=== PATIENT | male | born 1955 | race Asian ===

== ENCOUNTER → 2018-06-20 | Outpatient (CLI) | payer OTHER ==
[~2018-06-20] MED LIST: AMLO10TA6 PO; ASPI-555 PO; CARV12.511 PO; LOSA50TA25 PO
[2018-06-20 08:36] LABS: BASOPHILS % (AUTO) 0.6 % (0.0-5.0); EOSINOPHILS % (AUTO) 5.2 % (0.0-8.0); HEMATOCRIT 40.8 % (42-54); LYMPHOCYTES % (AUTO) 18.3 % (21.0-51.0); MEAN CORPUSCULAR HEMOGLOBIN 30.1 pg (27.0-33.0); MEAN CORPUSCULAR HGB CONC 34.3 g/dL (32.0-36.0); MEAN CORPUSCULAR VOLUME 87.9 fL (79-99); MONOCYTES % (AUTO) 5.7 % (3.0-13.0); NEUTROPHILS % (AUTO) 70.2 % (40.0-77.0); NUCLEATED RED BLOOD CELLS 0.1 % (0.0-0.19); PLATELET COUNT (AUTO) 224 K/uL (130-400); RED BLOOD CELL COUNT(AUTO) 4.63 MIL/uL (4.50-6.20); RED CELL DISTRIBUTION WIDTH 13.8 % (11.0-15.5); WHITE BLOOD COUNT (AUTO) 7.3 K/uL (4.8-10.8)
[2018-06-20 09:02] LABS: ALBUMIN 3.8 g/dL (3.5-5.0); BILIRUBIN,TOTAL 0.4 mg/dL (0.2-1.0); CREATININE 1.4 mg/dL (0.5-1.5); THYROID STIMULATING HORMONE 1.78 uIU/mL (0.36-3.74); TOTAL PROTEIN, SERUM 8.3 g/dL (6.0-8.3)
[2018-06-20 09:08] LABS: POTASSIUM 4.5 mmol/L (3.5-5.1)
== END | disposition home or self-care (01) ==
LOC: LAB 07:29
PROVIDERS: ATTEND Internal Medicine
DX: Z12.11 Encounter for screening for malignant neoplasm of colon (principal); Z12.5 Encounter for screening for malignant neoplasm of prostate; I10 Essential (primary) hypertension; E78.5 Hyperlipidemia, unspecified; K21.9 Gastro-esophageal reflux disease without esophagitis
CPT/HCPCS: 36415; 80053; 80061; 82270; 84153; 84443; 85025

== ENCOUNTER → 2018-07-21 | Outpatient (CLI) | payer OTHER ==
[~2018-07-21] MED LIST changes: +IOHEXOL 350 MG/ML 100ML INFUS..BTL IV ONE
== END | disposition home or self-care (01) ==
LOC: OIH 09:39
PROVIDERS: ATTEND Internal Medicine Cardiovascular Disease
DX: I71.2 Thoracic aortic aneurysm, without rupture (principal); I71.4 Abdominal aortic aneurysm, without rupture; N28.1 Cyst of kidney, acquired; N32.89 Other specified disorders of bladder; I70.0 Atherosclerosis of aorta; J44.9 Chronic obstructive pulmonary disease, unspecified
CPT/HCPCS: 71275; 75635; Q9967

== ENCOUNTER → 2018-08-24 | Outpatient (CLI) | payer OTHER ==
[~2018-08-24] MED LIST changes: -IOHEXOL 350 MG/ML 100ML INFUS..BTL IV ONE
== END | disposition home or self-care (01) ==
LOC: LAB 15:41
PROVIDERS: ATTEND Internal Medicine
DX: R97.20 Elevated prostate specific antigen [PSA] (principal)
CPT/HCPCS: 36415; 84153; 84154

== ENCOUNTER 2021-10-05 06:50 | Day surgery (SDC) | payer OTHER ==
[2021-10-02 10:10] LABS: BASOPHILS % (AUTO) 0.6 % (0.0-5.0); EOSINOPHILS % (AUTO) 5.2 % (0.0-8.0); HEMATOCRIT 41.7 % (42-54); LYMPHOCYTES % (AUTO) 23.3 % (21.0-51.0); MEAN CORPUSCULAR HEMOGLOBIN 28.8 pg (27.0-33.0); MEAN CORPUSCULAR HGB CONC 32.9 g/dL (32.0-36.0); MEAN CORPUSCULAR VOLUME 87.6 fL (79-99); MONOCYTES % (AUTO) 6.5 % (3.0-13.0); NEUTROPHILS % (AUTO) 64.3 % (40.0-77.0); PLATELET COUNT (AUTO) 204 K/uL (130-400); RED BLOOD CELL COUNT(AUTO) 4.76 MIL/uL (4.50-6.20); WHITE BLOOD COUNT (AUTO) 7.1 K/uL (4.8-10.8)
[2021-10-02 10:21] LABS: CREATININE 1.4 mg/dL (0.5-1.5); POTASSIUM 4.5 mmol/L (3.5-5.1)
[2021-10-02 16:11] VITALS: BP 151/82
[2021-10-05] VITALS (18 sets, daily range): BP systolic 94–176; BP diastolic 45–94
[~2021-10-05] VITALS: Ht 165.1 cm; Wt 72.1 kg
[~2021-10-05 06:50] MED LIST changes: +AMLO-257 PO; -AMLO10TA6 PO; -ASPI-555 PO; +ATOR40TA71 PO; -CARV12.511 PO; +LOSA100T58 PO; -LOSA50TA25 PO; +TAMS-1 PO
[2021-10-05] MEDS ORDERED: DEXAMETHASONE SOD PHOSPHATE 10MG/ML 1ML VIAL ONE (06:51)
[2021-10-05] MEDS ORDERED: SUCCINYLCHOLINE CHLORIDE 20 MG/ML 10 ML VIAL ONE (06:51)
[2021-10-05] MEDS ORDERED: ONDANSETRON 4MG INJ ONE (06:51)
[2021-10-05] MEDS ORDERED: LIDOCAINE PF 100MG/5ML (2%) SYRINGE 5ML ONE (06:51)
[2021-10-05] MEDS ORDERED: PROPOFOL 10 MG/ML 20ML VIAL IV ONE (06:51)
[2021-10-05] MEDS ORDERED: ROCURONIUM 10MG/1ML SYR 10 MG/ML ML ONE (06:52)
[2021-10-05] MEDS ORDERED: NEOSTIGMINE 5MG/5ML SYR IV ONE (06:52)
[2021-10-05] MEDS ORDERED: FENTANYL CITRATE PF 50 MCG/1 ML 2ML VIAL ONE (06:52)
[2021-10-05] MEDS ORDERED: MIDAZOLAM HCL 1 MG/ML 2ML VIAL ONE (06:52)
[2021-10-05] MEDS ORDERED: GLYCOPYRROLATE 1 MG/5 ML SYRINGE ONE (06:52)
[2021-10-05] MEDS ORDERED: CEFAZOLIN SODIUM 1 GM VIAL ONE (07:26)
[2021-10-05] MEDS ORDERED: LACTATED RINGERS 1000ML 1,000 ML IV ONE (07:27)
[2021-10-05] MEDS ORDERED: CEFAZOLIN SODIUM 2 GM VIAL IV ONE (08:25)
[2021-10-05] MEDS ORDERED: IBUP-2070 PO (09:36)
[2021-10-05] MEDS ORDERED: CEPH500B PO (09:36)
[2021-10-05] MEDS ORDERED: ACET1TAB25 PO (09:36)
== END 2021-10-05 11:30 | disposition home or self-care (01) ==
LOC: DAH 06:50 → EDSTATUS 12:00
PROVIDERS: ATTEND Orthopaedic Surgery
DX: M23.322 Other meniscus derangements, posterior horn of medial meniscus, left knee (principal); Z20.822 Contact with and (suspected) exposure to COVID-19; M17.12 Unilateral primary osteoarthritis, left knee; M25.762 Osteophyte, left knee; M94.262 Chondromalacia, left knee; I10 Essential (primary) hypertension; K21.9 Gastro-esophageal reflux disease without esophagitis; Z95.5 Presence of coronary angioplasty implant and graft; Z98.890 Other specified postprocedural states
CPT/HCPCS: 29881; 36415; 80048; 85025; 87635; 93005; A4215; A4221; A4222; A4223; A4649; A4663; A4930 ×2; A5120; A6223; J0330; J0690 ×2; J1100; J2001; J2250; J2405; J2704; J2710; J3010; J3490; J7120

== ENCOUNTER → 2023-12-29 | Outpatient (CLI) | payer OTHER ==
[~2023-12-29] MED LIST changes: +ACET-2079 PO; +CEPH500B PO; +IBUP-2070 PO; -LOSA100T58 PO; +LOSA100T59 PO
[2023-12-29 09:38] LABS: HEMATOCRIT 43.5 % (42-54); MEAN CORPUSCULAR HEMOGLOBIN 29.9 pg (27.0-33.0); MEAN CORPUSCULAR HGB CONC 33.8 g/dL (32.0-36.0); MEAN CORPUSCULAR VOLUME 88.6 fL (79-99); RED BLOOD CELL COUNT(AUTO) 4.91 MIL/uL (4.50-6.20); RED CELL DISTRIBUTION WIDTH 13.5 % (11.0-15.5); WHITE BLOOD COUNT (AUTO) 7.6 K/uL (4.8-10.8)
[2023-12-29 09:44] LABS: ALBUMIN 3.7 g/dL (3.5-5.0); BILIRUBIN,DIRECT 0.2 mg/dL (0.0-0.3); BILIRUBIN,TOTAL 0.6 mg/dL (0.2-1.0); CREATININE 1.6 mg/dL (0.5-1.3); HEMOGLOBIN A1C 6.2 % (4.0-6.0); THYROID STIMULATING HORMONE 2.33 uIU/mL (0.36-3.74); TOTAL PROTEIN, SERUM 8.4 g/dL (6.0-8.3)
== END | disposition home or self-care (01) ==
LOC: LAB 08:36
PROVIDERS: ATTEND Internal Medicine Cardiovascular Disease
DX: I10 Essential (primary) hypertension (principal); R73.03 Prediabetes; R06.02 Shortness of breath; E78.2 Mixed hyperlipidemia
CPT/HCPCS: 36415; 80048; 80061; 80076; 83036; 84443; 85027

== ENCOUNTER → 2024-01-24 | Outpatient (CLI) | payer OTHER ==
[2024-01-24 08:42] LABS: CREATININE 1.6 mg/dL (0.5-1.3); POTASSIUM 4.6 mmol/L (3.5-5.1)
== END | disposition home or self-care (01) ==
LOC: LAB 07:59
PROVIDERS: ATTEND Internal Medicine Cardiovascular Disease
DX: I10 Essential (primary) hypertension (principal); R06.02 Shortness of breath
CPT/HCPCS: 36415; 80048

== ENCOUNTER → 2024-02-23 | Outpatient (CLI) | payer OTHER ==
[~2024-02-23] MED LIST changes: +IOHEXOL 350 MG/ML 100ML INFUS..BTL IV ONE
== END | disposition home or self-care (01) ==
LOC: RAH 08:25
PROVIDERS: ATTEND Internal Medicine Cardiovascular Disease
DX: I71.21 Aneurysm of the ascending aorta, without rupture (principal); Z95.828 Presence of other vascular implants and grafts
CPT/HCPCS: 75574; Q9967

== ENCOUNTER → 2024-03-02 | Outpatient (CLI) | payer OTHER | END | disposition home or self-care (01) | LOC: RAH 11:19 | PROVIDERS: ATTEND Internal Medicine Cardiovascular Disease | DX: I71.23 Aneurysm of the descending thoracic aorta, without rupture (principal); I71.21 Aneurysm of the ascending aorta, without rupture; Z95.828 Presence of other vascular implants and grafts | CPT/HCPCS: 71275; Q9967 ==

== ENCOUNTER 2024-08-08 06:05 | Day surgery (SDC) | payer OTHER ==
[2024-08-06 10:12] VITALS: BP 145/65; PULSE 57; RESP 16; TEMP 98.3
[2024-08-06 10:14] LABS: BASOPHILS # (AUTO) 0.04 K/uL (0.00-0.20); BASOPHILS % (AUTO) 0.6 % (0.0-5.0); EOSINOPHILS % (AUTO) 3.2 % (0.0-8.0); HEMATOCRIT 38.3 % (42-54); IMMATURE GRANULOCYTE ABSOLUTE 0.02 K/uL (0-1); LYMPHOCYTES # (AUTO) 1.1 K/uL (1.0-4.8); MEAN CORPUSCULAR HEMOGLOBIN 29.8 pg (27.0-33.0); MEAN CORPUSCULAR HGB CONC 33.4 g/dL (32.0-36.0); MEAN CORPUSCULAR VOLUME 89.1 fL (79-99); MONOCYTES # (AUTO) 0.4 K/uL (0.1-1.0); MONOCYTES % (AUTO) 6.5 % (3.0-13.0); NEUTROPHILS # (AUTO) 4.5 K/uL (1.8-7.7); NEUTROPHILS % (AUTO) 72.4 % (40.0-77.0); PLATELET COUNT (AUTO) 171 K/uL (130-400); RED CELL DISTRIBUTION WIDTH 13.2 % (11.0-15.5); WHITE BLOOD COUNT (AUTO) 6.2 K/uL (4.8-10.8)
[2024-08-06 10:19] LABS: CREATININE 1.4 mg/dL (0.5-1.3); POTASSIUM 4.3 mmol/L (3.5-5.1)
[2024-08-06 10:31] LABS: APPEARANCE,URINE CLEAR (CLEAR); BILIRUBIN,URINE NEGATIVE (NEGATIVE); COLOR,URINE LIGHT-YELLOW (YELLOW); GLUCOSE, URINE (UA) NEGATIVE (NEGATIVE); KETONES,URINE NEGATIVE (NEGATIVE); LEUKOCYTE ESTERASE ,URINE NEGATIVE Leu/uL (NEGATIVE); NITRATE,URINE NEGATIVE (NEGATIVE); OCCULT BLOOD,URINE NEGATIVE (NEGATIVE); PROTEIN,URINE 30 mg/dL (NEGATIVE); UROBILINOGEN,URINE 0.2 mg/dL (0.2-1.0)
[2024-08-06 10:46] LABS: B-TYPE NATRIURETIC PEPTIDE 64 pg/mL (0-100)
[2024-08-06 10:48] LABS: ADD UA MICROSCOPIC YES
--- NOTE | 2024-08-06 11:04 | HMCIMG ---
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 There is an aortic stent graft in place. Size and appearance are unchanged compared to previous exam. A sending portion of the aorta does not appear involved. Lungs are clear. Heart size is normal. There is no vascular congestion. Mediastinum and bony thorax appear otherwise unremarkable. IMPRESSION: 1. Aortic stent graft in place in the descending thoracic aorta. 2. No acute finding, no change is prior study 09/04/2021.
[2024-08-06 11:49] LABS: MUCUS,URINE RARE LPF (None Seen); SQUAMOUS EPITHELIAL CELL,UR RARE /HPF (0-2)
[2024-08-06 11:50] LABS: INR 1.01 (0.85-1.15); PROTHROMBIN TIME 10.9 SEC (9.6-11.6)
[2024-08-06 11:51] LABS: PARTIAL THROMBOPLASTIN TIME 28.7 SEC (26.3-35.5)
--- NOTE | 2024-08-06 12:23 | EKG ---
[facility] Test Date: 2024-08-06 Test Time: 10:58:32 Pat Name: MICHELLE WARD Department: ON [facility] OF [facility] Room: ON LICENSE OF [facility] Gender: M Science Technician: [id number] : 1955 Requested By: Karlene TINOCO Order Number: [id number] Reading MD: Damaso Bentley Measurements Intervals [place] Rate: 55 P: -14 PA: 223 QRS: 33 QRSD: 95 T: 36 QT: 473 QTc: 454 Interpretive Statements Sinus rhythm Prolonged PA interval Probable anteroseptal infarct, old Compared to ECG 10/02/2021 10:55:57 First degree AV block now present Myocardial infarct finding now present Electronically Signed On 08-09-2024 18:44:31 TELEX OPERATOR by Damaso Bentley Please click the below link to view image of tracing.
--- NOTE | 2024-08-07 11:32 | NUR ---
REPORT REPORTED CREAT TO IMAN OROZCO NP. OK TO PROCEED
[~2024-08-08] VITALS: Ht 165.1 cm; Wt 73.0 kg
[2024-08-08] VITALS (11 sets, daily range): BP systolic 91–172; BP diastolic 54–78; PULSE 44–59; RESP 14–18; TEMP 97.3–97.5
[~2024-08-08 06:05] MED LIST changes: -ACET-2079 PO; -ATOR40TA71 PO; +CARV12.511 PO; -CEPH500B PO; -IBUP-2070 PO; -IOHEXOL 350 MG/ML 100ML INFUS..BTL IV ONE; -LOSA100T59 PO; +ROSU10TA72 PO
[2024-08-08] MEDS ORDERED: NITROGLYCERIN 50MG VIAL ONE (07:10)
[2024-08-08] MEDS ORDERED: LIDOCAINE HCL 400MG/20ML VIAL ONE (07:10)
[2024-08-08] MEDS ORDERED: HEParin-NS 1,000 UNIT/500 ML 1,000 ML IV ONE (07:10)
[2024-08-08] MEDS ORDERED: IOHEXOL 350 MG/ML 100ML INFUS..BTL IV ONE (07:10)
[2024-08-08] MEDS ORDERED: SODIUM BICARB 50MEQ 50ML VIAL 50 ML ONE (07:29)
[2024-08-08] MEDS ORDERED: MIDAZOLAM HCL 1 MG/ML 2ML VIAL ONE ×2 (07:30→07:37)
[2024-08-08] MEDS ORDERED: MEPERIDINE-PF 25 MG/ML SYG ONE ×2 (07:30→07:37)
[2024-08-08] MEDS ORDERED: IOHEXOL-350 75 ML VIAL IV ONE (07:31)
[2024-08-08] MEDS ORDERED: 0.9%NACL 1000ML 1,000 ML IV SCH (08:30)
--- NOTE | 2024-08-08 09:05 | PR ---
PROCEDURES: * Placement of a pigtail catheter in the aortic root. * Aortic root and aortic arch angiogram in the KHMER projection with digital acquisitions. * Left heart catheterization. * Selective right and left coronary arteriography. * Conscious sedation. INDICATIONS: * Ascending and aortic arch aneurysms. * Status post remote endoluminal graft placement in the descending thoracic aorta for thoracic descending aortic aneurysm. COMPLICATIONS: None. TOTAL CONTRAST: Approximately 100 mL DESCRIPTION OF PROCEDURE: The patient was taken to the cardiac catheterization lab after the appropriate operative consents were signed. He was prepped and draped in the usual fashion. After conscious sedation was administered, the right common femoral artery region was infiltrated with 2% Xylocaine without epinephrine. Right common femoral artery was then accessed and a 6-Scottish sheath was advanced in retrograde fashion by modified Seldinger technique. At this point, a pigtail catheter was advanced carefully under fluoroscopic guidance. This was placed in the descending thoracic aorta and twirled to assure that was intraluminal with good results. The catheter was then advanced carefully into the aortic root. Aortic root angiogram was then performed in KHMER projection with digital acquisition. This identified an aneurysmal aortic root and aortic arch. The patient had a normal takeoff of the great vessels with a type 3 aortic arch. There was evidence of a thoracic endoluminal graft distal to the left subclavian artery with no evidence of obvious endoleak. At this point, we were able to exchange the pigtail catheter with an FR4 6-Scottish that was positioned over an indwelling wire into the left ventricular cavity. Left ventricular end-diastolic pressure measurement was obtained. Ventriculography was deferred because of renal dysfunction. Pullback revealed an aortic stenosis. The patient has preserved LV systolic function by prior echocardiographic studies. Repeat echocardiogram has been ordered. The catheter was then engaged in the ostium of the right coronary artery with some manipulation given the ascending aortic aneurysm and a dilated aortic root. The right coronary artery was imaged identifying a large vessel that gave rise to an acute marginal PDA and a PLVB. There was no evidence of stenotic lesions. The catheter was then withdrawn. An FL5 6-Scottish catheter was utilized and engaged into the left main. The catheter had a superior orientation given the dilated aortic root. Imaging was obtained in multiplane identifying a large left main, which was free of disease. It bifurcated into LAD, the circumflex. LAD was a moderately large vessel that gave rise to several diagonals and septal perforators. It had minimal luminal irregularities and no significant stenotic lesions. Circumflex was a moderately large vessel that gave rise to several marginal branches and ongoing circ. The circ system was free of disease. At this point, the procedure was completed, Mynx and Perclose were attempted, but failed, so manual compression was utilized. The patient tolerated the procedure well and left the cardiac catheterization lab in stable condition. FINAL IMPRESSION: * Essentially normal coronary arteries. * Aneurysmal aortic root and aortic arch. * Type 3 aortic arch with normal orientation of the great vessels. * Patent brachiocephalic, left carotid and left subclavian artery. * Patent descending thoracic endoluminal graft with no endoleak. PLAN: Continue the current medical management. The patient is scheduled to see a cardiothoracic surgeon in [place] for additional evaluation and management of ascending and aortic arch aneurysms. TID: [id number] RECEIPT: [id number]
--- NOTE | 2024-08-08 10:50 | NUR ---
Patient remains stable with VS wnl SB continues post LHC. Right groin site without sign of bleeding, bruising or hematoma. Pedal pulses intact to BLE's. Denies c/o chest pain or issue. Ate 100% of breakfast . 2D Echo completed at bedside. at side appearing suppotive, IVF hydration and bedrest continue per orders.
--- NOTE | 2024-08-08 14:44 | NUR ---
Full and complete discharge instructions given to Patient and both verbally and in writing. All questions answered. Patient denies c/o pain or discomfort. Voiced understanding to precautions post Software Lead procedure. Groin site soft without bruising, bleeding or hematoma. Pedal pulses intact to ble's. PIV removed with catheter tip intact. Full and complete packet given to including 4 CD's and todays Operative Software Lead report. W/C to POV to Home.
--- NOTE | 2024-08-15 08:27 | HMCSR ---
APPROVED REPORT EXAM: Two-dimensional and M-mode echocardiogram with Doppler and color Doppler. INDICATION ICD: Aortic dissection Pre-Op 2D Dimensions RVDd3.5 cmLVEF(%)42.6 (>50%)LVED Vol(simp.)110.0 mL IVSd1.2 (0.7-1.1cm)FS(%)21 %LVES Vol(simp.)44.5 mL LVDd4.8 (3.8-5.6cm)LA (2D)3.7 (1.6-4.0cm)LVEF(%, simp.)60 % PWd1.2 (0.7-1.1cm)Ao Root(2D)5.3 (2.0-3.7cm)LA ESV INDEX (4CH)24.20 mL/m2 IVSs1.3 cmLVOT diam2.6 (1.8-2.4cm)LA ESV INDEX (2CH)34.30 mL/m2 LVDs3.8 (2.5-4.0cm)IVC diam1.7 cmLA ESV INDEX (BP)29.10 mL/m2 PWs2.1 cm Deformation Strain Apical 424.0 % Apical 220.0 % Apical 325.0 % Global Ekvvvm38.0 % Aortic Valve AoV VTI0.4 mAo Mean GR5.0 mmHgLVOT VTI0.24 m ELENA (VMAX)3.3 cm2Al P1/2T618 msAVA (VTI) 3.3 cm2 Mitral Valve MV E Vmax60.6 cm/sDECEL Wlmi405 ms MV A Vmax52.9 cm/sP 1/2 T59 ms E/A ratio1.1MVA (PHT)3.7 cm2 MR Max PG6 mmHg TDI E/E' Tjceka00.1E/E' Lateral7.7 Medial E' Peak V5.00 cm/sLateral E' Peak V7.90 cm/s Pulmonary Valve PV VTI0.25 mPV Mean GR2 mmHg Left Ventricle The left ventricle is normal size. There is normal LV segmental wall motion. There is mild concentric left ventricular hypertrophy. LVEF is 55-60%. No left ventricle thrombus noted on this study. The le ft ventricular diastolic function is normal. Right Ventricle The right ventricle is normal size. The right ventricular systolic function is normal. Atria The left atrium size is normal. The right atrium size is normal. Aortic Valve The aortic valve is mildly thickened. Mild to moderate aortic regurgitation. There is no aortic valvu lar stenosis. Mitral Valve The mitral valve is normal in structure. There is no mitral valve regurgitation noted. There is no mi tral valve stenosis. Tricuspid Valve The tricuspid valve is normal in structure. There is no tricuspid valve regurgitation noted. Pulmonic Valve The pulmonary valve is normal in structure. There is no pulmonic valvular regurgitation. Great Vessels The aortic root is moderately enlarged. Ascending aorta is dilated, 5.2cm The IVC is normal in size a nd collapses >50% with inspiration. Pericardium There is no pericardial effusion. Conclusion The left ventricle is normal size. There is mild concentric left ventricular hypertrophy. LVEF is 55-60%. The right ventricle is normal size. The left atrium size is normal. The aortic valve is mildly thickened. Mild to moderate aortic regurgitation. There is no aortic valvular stenosis. There is no mitral valve regurgitation noted. There is no mitral valve stenosis. There is no tricuspid valve regurgitation noted. There is no pulmonic valvular regurgitation. The aortic root is moderately enlarged. The IVC is normal in size and collapses >50% with inspiration. There is no pericardial effusion.
== END 2024-08-08 14:40 | disposition home or self-care (01) ==
LOC: DAH 06:05
PROVIDERS: ATTEND Internal Medicine Cardiovascular Disease
DX: I25.10 Atherosclerotic heart disease of native coronary artery without angina pectoris (principal); I71.22 Aneurysm of the aortic arch, without rupture; I35.0 Nonrheumatic aortic (valve) stenosis; I71.012 Dissection of descending thoracic aorta; I35.1 Nonrheumatic aortic (valve) insufficiency; E78.5 Hyperlipidemia, unspecified; I10 Essential (primary) hypertension; Z79.01 Long term (current) use of anticoagulants; Z95.5 Presence of coronary angioplasty implant and graft; Z98.890 Other specified postprocedural states; Z79.899 Other long term (current) drug therapy
CPT/HCPCS: 80048; 83880; 85025; 85610; 85730; 81001; 36415; 71045; 93005; 93458; 93567; 93306; C1769; C1894; C1760 ×4; Q9965; J3490 ×3; J2250; J2175; J1644; Q9967 ×2; A4215; A4222; A4221; A4663; A4216; A4606; A4223 ×3; 96360; 96361; 99156; 99157